=== PATIENT | male | born 1990 | race Caucasian/White ===

== ENCOUNTER 2018-08-29 16:20 | Emergency (ER) | payer SELFPAY ==
[2018-08-29 16:27] VITALS: BP 109/65; PULSE 82; TEMP 99; BMI 18.3
--- NOTE | 2018-08-29 17:39 | PDOC ---
History of Present Illness <Kush Walker - Last Filed: 08/29/18 18:15> - General History Source: Patient Exam Limitations: No Limitations - History of Present Illness Initial Comments: 08/29/18 17:33 Pt is a 27yo M with PMH of migraines presenting to ED with complaints of disequilibrium, occasional palpitations associated with SOB and sweaty palms for the past 2 weeks. Pt states that about 1.5 months ago he had a "bad stomach virus" which gave him burning like sensations in his stomach and esophagus with diarrhea x1-2 weeks. These current symptoms started after. He went to urgent care but was "dismissed". He denies dizziness, but feels as if his legs and head are not communicating. He denies vertigo like symptoms, headaches, changes in vision, tinnitus, abdominal pain, n/v/d, numbness/tingling, urinary symptoms , recent URI. He does endorse occasional L bicep pain. He states that he feels anxious but does not know why because he has a good job now and feels happy. Denies history of STDs/HIV PMD: none Neuro: Streeter? PMH: see hpi PSH: none Meds: none Allergies: nkda Social: social alcohol use <Merlyn Chadwick - Last Filed: 08/29/18 18:40> - General Chief Complaint: Lightheaded Stated Complaint: DIZZINIES Time Seen by Provider: 08/29/18 16:40 Attending Attestation - Resident Resident Name: Merlyn Chadwick - ED Attending Attestation I have performed the following: I have examined & evaluated the patient, The case was reviewed & discussed with the resident, I agree w/resident's findings & plan, Exceptions are as noted - HPI HPI: Patient walked in complaining of being anxious, abdominal cramping, nausea, being under tremendous stress since he split from his partner, had to move out of the apartment , then a few days ago he was very happy getting a [employer] job. Had some emotional problems in the past as a child, does not see any therapist , nor a PCP He reported maintaining some body weight despite a recent episode of diarrhea ( IBS or viral syndrome) 08/29/18 18:18 - Physicial Exam PE: Alert, oriented x 3 ambulatory, Fully cooperating, denies any suicidal thoughts Head PARKER Neck suple Lungs clear Extremities skinny full range of motion 08/29/18 18:23 - Medical Decision Making Patient will follow at [facility] and Psychiatric at [facility] or [facility] or [facility] on [address] in [place] 08/29/18 18:28 <Movarghesea,Remus S - Last Filed: 08/29/18 18:15> Past History <Moucha,Remus S - Last Filed: 08/29/18 18:15> - Past Medical History COPD: No - Suicide/Smoking/Psychosocial Hx Smoking History: Never smoked Hx Alcohol Use: No Drug/Substance Use Hx: No <NettaMerlyn - Last Filed: 08/29/18 18:40> - Past Medical History Allergies/Adverse Reactions: Allergies Allergy/AdvReac Type Severity Reaction Status Date / Time No Known Allergies Allergy Unverified 08/29/18 16:22 Home Medications: Ambulatory Orders NK [No Known Home Medication] 08/29/18 Review of Systems - Review of Systems Constitutional: No: Chills, Fever, Night Sweats, Weakness HEENTM: No: Recent change in vision, Double Vision, Ear Pain, Tinnitus Respiratory: Yes: See HPI, Shortness of Breath. No: Cough Cardiac (ROS): Yes: See HPI, Palpitations. No: Chest Pain, Lightheadedness, Syncope, Chest Tightness ABD/GI: Yes: See HPI, Nausea. No: Constipated, Diarrhea, Rectal Bleeding, Vomiting, Abdominal cramping, Tarry Stools : No: Burning, Dysuria, Frequency, Flank Pain Musculoskeletal: Yes: See HPI, Muscle Pain. No: Back Pain, Joint Pain, Neck Pain Integumentary: No: Symptoms Reported Neurological: Yes: See HPI. No: Headache, Numbness, Paresthesia, Tingling, Tremors Psychiatric: Yes: Anxiety <Netta,Merlyn - Last Filed: 08/29/18 18:40> *Physical Exam - Vital Signs Last Vital Signs Temp Pulse Resp BP Pulse Ox 99.0 F 82 16 109/65 100 08/29/18 16:22 08/29/18 16:22 08/29/18 16:22 08/29/18 16:22 08/29/18 16:22 <Moucha,Remus S - Last Filed: 08/29/18 18:15> - Vital Signs Last Vital Signs Temp Pulse Resp BP Pulse Ox 99.0 F 82 16 109/65 100 08/29/18 16:22 08/29/18 16:22 08/29/18 16:22 08/29/18 16:22 08/29/18 16:22 - Physical Exam General Appearance: Yes: Nourished, Appropriately Dressed. No: Apparent Distress HEENT: positive: EOMI, CORRINE, TMs Normal, Pharynx Normal Neck: positive: Trachea midline, Supple. negative: Lymphadenopathy (R), Lymphadenopathy (L), Thyromegaly Respiratory/Chest: positive: Lungs Clear, Normal Breath Sounds. negative: Crackles, Rales, Rhonchi, Stridor, Wheezing Cardiovascular: positive: Regular Rhythm, Regular Rate, S1, S2. negative: Edema , JVD, Murmur Vascular Pulses: Carotid (R): 2+, Carotid (L): 2+, Dorsalis-Pedis (R): 2+, Doralis-Pedis (L): 2+ Gastrointestinal/Abdominal: positive: Normal Bowel Sounds, Soft. negative: Distended, Guarding, Rebound, Tenderness Musculoskeletal: negative: CVA Tenderness Extremity: positive: Normal Capillary Refill, Pelvis Stable. negative: Pedal Edema, Swelling, Calf Tenderness Integumentary: positive: Normal Color, Dry, Warm. negative: Rash, Swelling Neurologic: positive: software programmer II-XII NML intact, Fully Oriented, Alert, Normal Mood/ Affect, Normal Response, Motor Strength 5/5. negative: Numbness, Sensory Deficit <Merlyn Chadwick - Last Filed: 08/29/18 18:40> Moderate Sedation - Procedure Monitoring Vital Signs: Procedure Monitoring Vital Signs Temperature 99.0 F 08/29/18 16:22 Pulse Rate 82 08/29/18 16:22 Respiratory Rate 16 08/29/18 16:22 Blood Pressure 109/65 08/29/18 16:22 O2 Sat by Pulse Oximetry (%) 100 08/29/18 16:22 <Kush Walker S - Last Filed: 08/29/18 18:15> - Procedure Monitoring Vital Signs: Procedure Monitoring Vital Signs Temperature 99.0 F 08/29/18 16:22 Pulse Rate 82 08/29/18 16:22 Respiratory Rate 16 08/29/18 16:22 Blood Pressure 109/65 08/29/18 16:22 O2 Sat by Pulse Oximetry (%) 100 08/29/18 16:22 <Merlyn Chdawick - Last Filed: 08/29/18 18:40> ED Treatment Course - LABORATORY CBC & Chemistry Diagram: 08/29/18 17:37 08/29/18 17:37 - ADDITIONAL ORDERS Additional order review: 08/29/18 17:37 RBC 5.27 MCV 86.2 MCHC 32.0 RDW 12.8 MPV 7.2 L Neutrophils % 54.0 Lymphocytes % 35.1 Monocytes % 7.9 Eosinophils % 2.2 Basophils % 0.8 <Kush Walker S - Last Filed: 08/29/18 18:15> - LABORATORY CBC & Chemistry Diagram: 08/29/18 17:37 08/29/18 17:37 <Merlyn Chadwick - Last Filed: 08/29/18 18:40> Medical Decision Making - Medical Decision Making 08/29/18 17:37 Pt is a 27yo M with PMH of migraines presenting to ED with complaints of disequilibrium, occasional palpitations associated with SOB and sweaty palms for the past 2 weeks. Pt states that about 1.5 months ago he had a "bad stomach virus" which gave him burning like sensations in his stomach and esophagus with diarrhea x1-2 weeks. These current symptoms started after. He went to urgent care but was "dismissed". He denies dizziness, but feels as if his legs and head are not communicating. He denies vertigo like symptoms, headaches, changes in vision, tinnitus, abdominal pain, n/v/d, numbness/tingling, urinary symptoms , recent URI. He does endorse occasional L bicep pain. He states that he feels anxious but does not know why because he has a good job now and feels happy. Vitals: wnl PE: benign exam. R eye " jhoana". Ddx includes but not limited to hyper/hypothyroidism, electrolyte abnormality, metabolic derrangements, pheochromocytoma, BPPV, otolith, CVA. low suspicion for cva given pt age, ambulating normally, no neurological deficits. Low suspicion for PCC given normal vital signs. -basic labs, tsh -will refer to PMD. Labs wnl. TSH pending. Pt is hemodynamically stable, labs normal. Can be followed up outpt. Will give information about primary care clinic. <Merlyn Chadwick - Last Filed: 08/29/18 18:40> *DC/Admit/Observation/Transfer <Kush Walker - Last Filed: 08/29/18 18:15> - Discharge Dispostion Decision to Admit order: No <Merlyn Chadwick - Last Filed: 08/29/18 18:40> Diagnosis at time of Disposition: Anxiety, Dizziness - Discharge Dispostion Disposition: HOME Condition at time of disposition: Good - Patient Instructions Additional Instructions: You were seen in the emergency room today for dizziness, occasional chest pain, sweaty palms and shortness of breath with palpitations. Your lab tests were normal. This could be due to anxiety however I recommend following up with a primary care doctor in addition to following up with a psychiatrist or psychologist. [place] [address] There you can get referrals to psychiatry or psychology. You can also go to [address] [place] [address] Come back to the emergency room if dizziness gets worse, you pass out, you feel short of breath, you pass out or if any new concerning symptom develops. Thank you - Post Discharge Activity Forms/Work/School Notes: Back to Work
[2018-08-29 18:05] LABS: BASO % 0.8 % (0-2.0); EOS % 2.2 % (0-4.5); HEMATOCRIT 45.4 % (35.4-49); HEMOGLOBIN 14.6 GM/dl (11.7-16.9); LYMPH % 35.1 % (8-40); MCH 27.6 pg (25.7-33.7); MEAN CELL VOLUME 86.2 fl (80-96); MEAN PLT VOLUME 7.2 fl (7.5-11.1); MONO % 7.9 % (3.8-10.2); PLATELET COUNT 268 K/MM3 (134-434); RBC 5.27 M/mm3 (4.00-5.60); RDW 12.8 % (11.9-15.9); WHITE BLOOD COUNT 4.4 K/mm3 (4.0-10.8)
[2018-08-29 18:12] LABS: ALBUMIN 4.8 g/dl (3.4-5.0); ALK PHOS 45 U/L (45-117); ANION GAP 6 MMOL/L (8-16); BILIRUBIN,TOTAL 0.6 mg/dl (0.2-1); BLOOD UREA NITROGEN 14 mg/dl (7-18); CALCIUM 9.6 mg/dl (8.5-10); CHLORIDE 103 mmol/L (98-107); CO2 26 mmol/L (21-32); CREATININE 0.8 mg/dl (0.55-1.3); GLUCOSE,RANDOM 94 mg/dl (74-106); MAGNESIUM 2.4 mg/dL (1.8-2.4); POTASSIUM 3.9 mmol/L (3.5-5.1); SGOT/AST 21 U/L (15-37); SGPT/ALT 14 U/L (13-61); SODIUM 135 mmol/L (136-145); TOT PROT 7.8 g/dl (6.4-8.2)
== END 2018-08-29 18:59 | disposition home or self-care (01) ==
LOC: FER 16:20
DX: F41.9 Anxiety disorder, unspecified (principal); R42 Dizziness and giddiness
CPT/HCPCS: 36415; 80053; 83735; 84443; 85025; 99282-25